=== PATIENT | female | born 1950 | race Caucasian/White ===

== ENCOUNTER → 2017-12-10 | Outpatient (REF) | LOC: ZLAB.WCH 15:57 | DX: Z01.89 Encounter for other specified special examinations (principal) ==

== ENCOUNTER → 2018-01-20 | Outpatient (CLI) | payer BC ==
[~2018-01-20] VITALS: Ht 151.1 cm; Wt 102.7 kg
[~2018-01-20] MED LIST: GLUCOPHAGE500 MG/TAB PO; MOBIC15 MG PO; MULTIPLE VITAMI1 CAP PO; NEXIUM 40MG40 MG PO; TRILIPIX 135MG PO; ULTRAM 50MG TAB50 MG PO; ZANTAC 150150 MG PO; ZESTORETIC 12.51 TAB PO; ZOLOFT 100MG100 MG PO
[2018-01-20 08:15] VITALS: BP 122/70; PULSE 68
== END ==
LOC: LIGHT 07:48
DX: G47.33 Obstructive sleep apnea (adult) (pediatric) (principal); K21.9 Gastro-esophageal reflux disease without esophagitis; I10 Essential (primary) hypertension; E66.01 Morbid (severe) obesity due to excess calories; Z68.42 Body mass index [BMI] 45.0-49.9, adult; Z71.3 Dietary counseling and surveillance
CPT/HCPCS: G0463

== ENCOUNTER → 2018-02-03 | Outpatient (CLI) | payer BC ==
[~2018-02-03] VITALS: Ht 151.1 cm; Wt 101.8 kg
[2018-02-03 15:21] VITALS: BP 138/76; PULSE 64
== END ==
LOC: LIGHT 11:07
DX: E66.9 Obesity, unspecified (principal); Z71.3 Dietary counseling and surveillance

== ENCOUNTER → 2020-02-02 | Outpatient (CLI) | payer BC | LOC: MHCPAIN 08:19 | DX: M47.817 Spondylosis without myelopathy or radiculopathy, lumbosacral region (principal); M54.5 Low back pain; M53.3 Sacrococcygeal disorders, not elsewhere classified; G89.29 Other chronic pain; M54.16 Radiculopathy, lumbar region | CPT/HCPCS: G0463 ==

== ENCOUNTER → 2020-02-10 | Outpatient (CLI) | payer BC | LOC: MHCPAIN 08:37 | DX: M47.817 Spondylosis without myelopathy or radiculopathy, lumbosacral region (principal); M54.5 Low back pain; M54.16 Radiculopathy, lumbar region | CPT/HCPCS: J1100; Q9967 ==

== ENCOUNTER → 2020-02-21 | Outpatient (CLI) | payer BC | LOC: MHCPAIN 09:28 | DX: M47.817 Spondylosis without myelopathy or radiculopathy, lumbosacral region (principal); M54.5 Low back pain; M53.3 Sacrococcygeal disorders, not elsewhere classified | CPT/HCPCS: G0463 ==

== ENCOUNTER → 2020-05-17 | Outpatient (CLI) | payer BC | LOC: MHCPAIN 12:50 | DX: M47.817 Spondylosis without myelopathy or radiculopathy, lumbosacral region (principal); M54.5 Low back pain; M53.3 Sacrococcygeal disorders, not elsewhere classified; M25.552 Pain in left hip; G89.29 Other chronic pain | CPT/HCPCS: G0463 ==

== ENCOUNTER 2020-05-22 16:00 | Outpatient (RCR) | payer BC | END 2020-05-23 | disposition home or self-care (01) | LOC: WSC | DX: M47.27 Other spondylosis with radiculopathy, lumbosacral region (principal); M53.3 Sacrococcygeal disorders, not elsewhere classified ==

== ENCOUNTER → 2020-05-22 | Outpatient (CLI) | payer BC | LOC: MHCPAIN 13:20 | DX: M47.817 Spondylosis without myelopathy or radiculopathy, lumbosacral region (principal); M54.16 Radiculopathy, lumbar region | CPT/HCPCS: J1100; Q9967 ==

== ENCOUNTER 2020-06-04 12:13 | Emergency (ER) | payer BC ==
[~2020-06-04] VITALS: Ht 152.4 cm; Wt 97.7 kg
[2020-06-04 12:39] VITALS: TEMP 98.5
[2020-06-04 13:16] LABS: BASO % 0.4 % (0.0-2.0); EOS % 0.6 % (0-4.0); GRAN # 4.2 (1.4-6.5); GRAN % 78.9 % (42.2-75.2); HEMATOCRIT 33.8 % (37.0-47.0); HEMOGLOBIN 10.9 g/dl (12.5-16.0); LYMPH # 0.8 (1.2-3.4); LYMPH % 15.7 % (20.0-51.0); MEAN CELL VOLUME 95 fl (80.0-100.0); MEAN CORPUSCULAR HEMOGLOBIN 31 pg (27.0-31.0); MEAN CORPUSCULAR HGB CONC 32 g/dl (33.0-37.0); MEAN PLATELET VOLUME 11.4 fl (7.4-10.4); MONO # 0.2 (0.1-0.6); PLATELET COUNT 202 K/mm3 (130-400); RED BLOOD COUNT 3.57 M/mm3 (4.10-5.30); REDCELL DISTRIBUTION WIDTH-CV 13.3 % (11.5-14.5)
[2020-06-04 13:22] LABS: ALANINE AMINOTRANSFERASE 42 U/L (4-34); ALKALINE PHOSPHATASE 75 U/L (50-136); ANION GAP 10 mmol/L (7-16); AST,SGOT 54 U/L (15-37); BILIRUBIN,TOTAL 0.6 mg/dL (0.0-1.0); BLOOD UREA NITROGEN 53 mg/dL (7-17); CALCIUM 9.2 mg/dL (8.4-10.2); CARBON DIOXIDE 25 mmol/L (22-30); CHLORIDE 99 mmol/L (98-107); CREATININE, serum 1.96 (0.52-1.25); GLUCOSE 121 mg/dL (74-106); POTASSIUM 4.5 mmol/L (3.4-5.0); SODIUM 135 mmol/L (137-145)
[2020-06-04 13:35] LABS: TROPONIN-I < 0.012 ng/mL (0.000-0.035)
[2020-06-04 16:47] VITALS: BP 112/55; PULSE 61
== END 2020-06-04 17:10 | disposition home or self-care (01) ==
LOC: COL.ER 12:13
PROVIDERS: Nurse Practitioner
DX: U07.1 COVID-19 (principal); M54.32 Sciatica, left side; I10 Essential (primary) hypertension; F41.9 Anxiety disorder, unspecified; F32.9 Major depressive disorder, single episode, unspecified; K21.9 Gastro-esophageal reflux disease without esophagitis; Z87.891 Personal history of nicotine dependence; Z88.2 Allergy status to sulfonamides; Z79.84 Long term (current) use of oral hypoglycemic drugs

== ENCOUNTER → 2021-07-12 | Outpatient (CLI) | payer MEDICARE ==
[2021-07-12 10:18] LABS: COLLECTION METHOD CLEAN CATCH
[2021-07-12 10:21] LABS: BASO % 0.7 % (0.0-2.0); EOS # 0.1 K/mm3 (0.0-0.7); EOS % 1.6 % (0.0-4.0); GRAN # 3.3 K/mm3 (1.4-6.5); GRAN % 57.1 % (42.2-75.2); HEMATOCRIT 38.9 % (37.0-47.0); HEMOGLOBIN 12.2 g/dl (12.5-16.0); LYMPH # 1.8 K/mm3 (1.2-3.4); MEAN CELL VOLUME 97 fl (80.0-100.0); MEAN CORPUSCULAR HEMOGLOBIN 30 pg (27-31); MEAN CORPUSCULAR HGB CONC 31 g/dl (33.0-37.0); MEAN PLATELET VOLUME 11.3 fl (7.4-10.4); MONO # 0.5 K/mm3 (0.1-0.6); MONO % 9.4 % (1.7-9.3); PLATELET COUNT 252 K/mm3 (130-400); RED BLOOD COUNT 4.01 M/mm3 (4.10-5.30)
[2021-07-12 10:28] LABS: PH 6 (5-8); URINE APPEARANCE Clear (CLEAR/HAZY); URINE COLOR Yellow (YELLOW); URINE PROTEIN(semi-quant) 1+ (NEGATIVE)
[2021-07-12 10:29] LABS: URINE BILIRUBIN Negative (NEGATIVE); URINE GLUCOSE Negative (NEGATIVE); URINE KETONE Negative (NEGATIVE); URINE NITRATE Negative (NEGATIVE)
[2021-07-12 10:31] LABS: URINE BLOOD 3+ (NEGATIVE); URINE LEUKOCYTE ESTERASE 1+ (NEGATIVE)
[2021-07-12 10:32] LABS: URINE UROBILINOGEN Negative (NEGATIVE)
[2021-07-12 10:36] LABS: CALCIUM 9.7 mg/dL (8.4-10.2); CREATININE, serum 0.82 mg/dL (0.57-1.11); URIC ACID 5.5 mg/dL (2.6-6.0)
[2021-07-12 12:18] LABS: SQUAMOUS EPITHELIAL None Seen /hpf (0-10); URINE BACTERIA None Seen /hpf (NONE SEEN); URINE RBC 0-2 /hpf (0-2)
== END ==
LOC: COL.LAB 09:39
DX: E11.22 Type 2 diabetes mellitus with diabetic chronic kidney disease (principal); N18.31 Chronic kidney disease, stage 3a; E11.21 Type 2 diabetes mellitus with diabetic nephropathy

== ENCOUNTER → 2021-08-02 | Outpatient (CLI) | payer MEDICARE | LOC: COL.RAD 12:39 | DX: I12.9 Hypertensive chronic kidney disease with stage 1 through stage 4 chronic kidney disease, or unspecified chronic kidney disease (principal); N18.31 Chronic kidney disease, stage 3a ==

== ENCOUNTER → 2021-12-19 | Outpatient (CLI) | payer MEDICARE, BC, OTHER | LOC: MHCPAIN 13:38 | DX: M47.896 Other spondylosis, lumbar region (principal); M54.16 Radiculopathy, lumbar region; M25.552 Pain in left hip; M53.3 Sacrococcygeal disorders, not elsewhere classified | CPT/HCPCS: G0463 ==

== ENCOUNTER → 2021-12-24 | Outpatient (CLI) | payer MEDICARE, BC, OTHER | LOC: MHCPAIN 12:09 | DX: M47.817 Spondylosis without myelopathy or radiculopathy, lumbosacral region (principal); M54.16 Radiculopathy, lumbar region; M53.3 Sacrococcygeal disorders, not elsewhere classified | CPT/HCPCS: J1100; Q9967 ==

== ENCOUNTER → 2022-01-15 | Outpatient (CLI) | payer MEDICARE, BC, OTHER | LOC: MHCPAIN 12:38 | DX: M47.816 Spondylosis without myelopathy or radiculopathy, lumbar region (principal); M54.16 Radiculopathy, lumbar region; M53.3 Sacrococcygeal disorders, not elsewhere classified | CPT/HCPCS: G0463 ==

== ENCOUNTER → 2022-02-11 | Outpatient (CLI) | payer MEDICARE, BC, OTHER | LOC: MHCPAIN 11:20 | DX: M47.817 Spondylosis without myelopathy or radiculopathy, lumbosacral region (principal); M53.3 Sacrococcygeal disorders, not elsewhere classified; M54.16 Radiculopathy, lumbar region | CPT/HCPCS: J1100; Q9967 ==

== ENCOUNTER → 2022-03-27 | Outpatient (CLI) | payer MEDICARE, OTHER | LOC: COL.RAD 07:50 | DX: M47.26 Other spondylosis with radiculopathy, lumbar region (principal); M51.16 Intervertebral disc disorders with radiculopathy, lumbar region; M48.061 Spinal stenosis, lumbar region without neurogenic claudication; M41.86 Other forms of scoliosis, lumbar region; M16.12 Unilateral primary osteoarthritis, left hip ==

== ENCOUNTER → 2022-07-01 | Outpatient (CLI) | payer MEDICARE, OTHER | LOC: MHCPAIN 12:40 | DX: M16.12 Unilateral primary osteoarthritis, left hip (principal); M25.552 Pain in left hip | CPT/HCPCS: J1040; Q9967 ==

== ENCOUNTER 2024-02-11 07:53 | Day surgery (SDC) | payer MEDICARE, OTHER ==
[~2024-02-11] VITALS: Ht 152.4 cm; Wt 85.4 kg
[2024-02-11] VITALS (9 sets, daily range): BP systolic 100–124; BP diastolic 55–64; PULSE 54–65; TEMP 98.2
[2024-02-11] MEDS ORDERED: 1/2 NS 1,000 ML IV SCH (08:30)
[2024-02-11] MEDS ORDERED: LOFIBRA200 MG PO (08:59)
[2024-02-11] MEDS ORDERED: ZESTRIL 20MG TA20 MG PO (08:59)
[2024-02-11] MEDS ORDERED: PRIL40 PO (09:00)
[2024-02-11] MEDS ORDERED: ASPIRIN E.C. 8181 MG PO (09:01)
[2024-02-11] MEDS ORDERED: ZETIA 10MG TAB10 MG PO (09:01)
[2024-02-11] MEDS ORDERED: LIPITOR20 MG PO (09:02)
[2024-02-11] MEDS ORDERED: LEXAPRO 10MG10 MG PO (09:02)
[2024-02-11] MEDS ORDERED: NORVASC 5MG5 MG/TAB PO (09:02)
[2024-02-11 09:03] LABS: HEMOGLOBIN 10.9 g/dl (12.5-16.0); MEAN CELL VOLUME 95 fl (80.0-100.0); MEAN CORPUSCULAR HEMOGLOBIN 31 pg (27-31); MEAN CORPUSCULAR HGB CONC 33 g/dl (33.0-37.0); MEAN PLATELET VOLUME 12.3 fl (7.4-10.4); PLATELET COUNT 169 K/mm3 (130-400); RED BLOOD COUNT 3.48 M/mm3 (4.10-5.30); REDCELL DISTRIBUTION WIDTH-CV 13.1 % (11.5-14.5)
[2024-02-11 09:04] LABS: PROTHROMBIN TIME 11.2 SECONDS (9.7-12.8)
[2024-02-11 09:05] LABS: HEMATOCRIT 33.2 % (37.0-47.0)
[2024-02-11 09:07] LABS: PARTIAL THROMBOPLASTIN TIME 20.2 SECONDS (26.0-37.0)
[2024-02-11 09:16] LABS: CALCIUM 9.5 mg/dL (8.4-10.2); CREATININE, serum 0.83 mg/dL (0.57-1.11)
[2024-02-11] MEDS ORDERED: OMEGA-31 SGL PO (09:21)
[2024-02-11] MEDS ORDERED: MAG-OX 400400 MG/TAB PO (09:22)
[2024-02-11] MEDS ORDERED: THE MEDICINE S200 M2 PO (09:22)
[2024-02-11] MEDS ORDERED: NATURE'S BLEND500 M1 PO (09:22)
[2024-02-11] MEDS ORDERED: WEGOVY0.25 MG/0. SQ (09:23)
[2024-02-11] MEDS ORDERED: MASON NATURAL600 MG PO (09:23)
[2024-02-11] MEDS ORDERED: Nitroglycerin 100 MCG/ML (Cath Lab) 10 ML VIAL IA SCH (10:05)
[2024-02-11] MEDS ORDERED: Heparin 1,000 UNITS/ML 10 ML Multi-Dose VIAL IV SCH (10:06)
[2024-02-11] MEDS ORDERED: Midazolam 2 MG/2 ML VIAL IV SCH (10:11)
--- NOTE | 2024-02-11 10:11 | NUR ---
See Merge Report for procedural seation/notes
[2024-02-11] MEDS ORDERED: fentaNYL 50 MCG/ML 2 ML VIAL IV SCH (10:12)
[2024-02-11] MEDS ORDERED: Iohexol 350 - 100 ML VIAL INCOR ONE (10:13)
--- NOTE | 2024-02-11 10:20 | NUR ---
Pt back to [facility] - Bedside handoff performed with WINNIE Ortiz: vitals initiated and stable, rt radial access site stable, call light in reach, daughter at bedside
--- NOTE | 2024-02-11 10:25 | NUR ---
PT TO [facility] VIA BED FROM NOC ENGINEER, DAUGHTER WITH PT. PT ALERT, ORIENATED. NO C/O PAIN OR SOB. VSS, RADIAL BAND ON WITH NO OOZING OR SWELLING. CALL LIGHT IN REACH, PT TAKES SPRITE, SITS UP IN BED
--- NOTE | 2024-02-11 11:30 | NUR ---
PT SITS UP IN BED, SIPS ON SPRITE, VISITS WITH DAUGHTER, NO C/O, DECLINED MEAL AT THIS TIME
--- NOTE | 2024-02-11 12:30 | NUR ---
PT UP TO B/R TO VOID, GAIT STEADY, RELEASING 2CC OF AIR OVER 20 MIN WITH NO OOZING, BLEEDING OR SWELLING TO SITE, BANDAID OVER SITE WITH COBAN FOR SUPPORT
--- NOTE | 2024-02-11 13:00 | NUR ---
REVIEWED DISCHARGE INST. WITH PT ON CARE OF SITE, PRECAUTIONS, NEXT APPT, AND NO NEW RX WITH VERBAL UNDERSTANDING. IV D'CD INTACT, PT UP IN ROOM DRESSED, DISCHARGED VIA W/C WITH STAFF AND DAUGHTER AT 1313
== END 2024-02-11 13:15 | disposition home or self-care (01) ==
LOC: COL.CAR 07:53
PROVIDERS: Internal Medicine Cardiovascular Disease
DX: I25.10 Atherosclerotic heart disease of native coronary artery without angina pectoris (principal); I10 Essential (primary) hypertension; E66.9 Obesity, unspecified; E78.1 Pure hyperglyceridemia; E78.41 Elevated Lipoprotein(a); Z87.891 Personal history of nicotine dependence; Z68.38 Body mass index [BMI] 38.0-38.9, adult
CPT/HCPCS: J1644; J2250; J3010; Q9967